=== PATIENT | male | born 1955 | race Caucasian/White ===

== ENCOUNTER 2020-06-29 09:23 | Outpatient (REF) | payer SELFPAY ==
[2020-06-29 10:44] LABS: Cholesterol 191 mg/dL
== END 2020-06-29 09:24 | disposition home or self-care (01) ==
LOC: HO.LNC 09:23
PROVIDERS: Visit Provider Pathology Anatomic Pathology & Clinical Pathology
DX: E78.5 Hyperlipidemia, unspecified (principal)
CPT/HCPCS: 82465

== ENCOUNTER 2022-07-09 15:59 | Emergency (ER) | payer MEDICARE, SELFPAY ==
[2022-07-09 16:05] VITALS: BP 133/91; PULSE 78; RESP 18; TEMP 36.6; O2SAT 97; BMI 25.4
--- NOTE | 2022-07-09 16:05 | ED_ITS ---
HPI - Eye Problem General Chief complaint: Eye Problems <SACHA Rodriguez - Last Filed: 07/09/22 16:11> Stated complaint: left eye problem <SACHA Rodriguez - Last Filed: 07/09/22 16:11> Time Seen by Provider: 07/09/22 16:50 <SACHA Rodriguez - Last Filed: 07/09/22 16:11> Source: patient <Doris Armenta NP - Last Filed: 07/09/22 23:30> Mode of arrival: ambulatory <Doris Armenta NP - Last Filed: 07/09/22 23:30> Limitations: no limitations <Doris Armenta NP - Last Filed: 07/09/22 23:30> History of Present Illness HPI Narrative: 67-year-old male presents with flashing lights to his right eye when he moves his head or turns his eyes. He states that he has had an upper respiratory infection and has been coughing over the past 10 days. He does not report any curtain like darkness, loss of vision, changes in vision, or significant eye pain on movement. Does not report any trauma, or risk of foreign body. <Doris Armenta NP - Last Filed: 07/09/22 23:30> chief complaint: other (Photopsia) <Doris Armenta NP - Last Filed: 07/09/22 23:30> Onset (ago): day(s) (2) <Doris Armenta NP - Last Filed: 07/09/22 23:30> Onset description: gradual <Doris Armenta NP - Last Filed: 07/09/22 23:30> Duration: intermittent <Doris Armenta NP - Last Filed: 07/09/22 23:30> Location: right eye <Doris Armenta NP - Last Filed: 07/09/22 23:30> Place: home <Doris Armenta NP - Last Filed: 07/09/22 23:30> Mechanism: none <Doris Armenta NP - Last Filed: 07/09/22 23:30> Severity: mild <Doris Armenta NP - Last Filed: 07/09/22 23:30> Context: recent URI <Doris Armenta NP - Last Filed: 07/09/22 23:30> Associated symptoms: none <Doris Armenta NP - Last Filed: 07/09/22 23:30> Treatments Prior to Arrival: none <Doris Armenta NP - Last Filed: 07/09/22 23:30> Related Data Allergies/adverse reactions: Allergies Allergy/AdvReac Type Severity Reaction Status Date / Time No Known Allergies Allergy Unverified 03/17/20 14:41 [No Known Allergies*] <SACHA Rodriguez - Last Filed: 07/09/22 16:11> Review of Systems Review of Systems: Constitutional: No Fever, No Chills ENT/Mouth: No Ear Pain, No Hoarseness, No sore throat Eyes: Positive eye flashes, no Eye Pain, No Swelling, No Redness, No Foreign Body Cardiovascular: No Chest Pain, No SOB Respiratory: No Cough, No Dyspnea Gastrointestinal: No Nausea, No Vomiting, No Diarrhea, No abdominal Pain Musculoskeletal: No joint pain, No Myalgias, No Joint Swelling Skin: No Skin lacerations, No rash Neuro: No Weakness, No Numbness, No Paresthesias, No Dizziness, No Headache <Doris Armenta NP - Last Filed: 07/09/22 23:30> Yes all other systems are reviewed and are negative <Doris Armenta NP - Last Filed: 07/09/22 23:30> PMFSH Past Medical History Attestation statement: The following information was validated with the patient. <Doris Armenta NP - Last Filed: 07/09/22 23:30> Source: old records reviewed <Doris Armenta NP - Last Filed: 07/09/22 23:30> Social History Social History: Social History Advance Directives: No Advance Directives Information Provided: Yes <SACHA Rodriguez - Last Filed: 07/09/22 16:11> Physical Exam 2 Vital Signs: Vital Signs: Last Vital Signs Temp 97.8 F 07/09/22 16:05 Pulse 78 07/09/22 16:05 Resp 18 07/09/22 16:05 BP 133/91 H 07/09/22 16:05 Pulse Ox 97 07/09/22 16:05 O2 Del Method 07/09/22 16:05 BMI result Body Mass Index 25.4 <SACHA Rodriguez - Last Filed: 07/09/22 16:11> Vital Signs: Last Vital Signs Temp 97.8 F 07/09/22 16:05 Pulse 78 07/09/22 16:05 Resp 18 07/09/22 16:05 BP 133/91 H 07/09/22 16:05 Pulse Ox 97 07/09/22 16:05 O2 Del Method 07/09/22 16:05 BMI result Body Mass Index 25.4 <Doris Armenta NP - Last Filed: 07/09/22 23:30> Appearance: Alert. Oriented X3. No acute distress. Eyes: Pupils equal, round and reactive to light. Sclera nonicteric. No hyphema. No globe rupture. No nystagmus. ENT: Pharynx normal. Neck: Normal inspection. Neck supple. CVS: Normal heart rate and rhythm. Pulses normal. Respiratory: No respiratory distress. Breath sounds normal. Abdomen: Soft and nontender. Skin: Skin warm and dry. Normal skin color. Normal skin turgor. Extremities: No lower extremity edema. Gait well-balanced well coordinated. Neuro: No motor deficit. No sensory deficit. Cranial nerves 2-12 intact. <Doris Armenta NP - Last Filed: 07/09/22 23:30> Course Course Course Narrative: RME--67-year-old male Pmhx prostate CA, hemochromatosis, presenting to the ED complaining of right eye visual changes described as seeing a white flash in the corner of his eye when he turns his head to the right since yesterday. Wears cheater glass, No contacts. Denies EVANGELISTA or taking AC Visual acuity ordered. Patient will be sent back to the ED for full eval by main provider <SACHA Rodriguez - Last Filed: 07/09/22 16:11> RME--67-year-old male Pmhx prostate CA, hemochromatosis, presenting to the ED complaining of right eye visual changes described as seeing a white flash in the corner of his eye when he turns his head to the right since yesterday. Wears cheater glass, No contacts. Denies EVANGELISTA or taking AC Visual acuity ordered. Patient will be sent back to the ED for full eval by main provider 17:[address] Manzano, plan is for patient to follow-up in the office tomorrow for dilation with proper funduscopic exam. There is low risk for optic neuritis, no risk for amaurosis fugax, or retinal detachment. Patient has not had any visual losses, or any trauma. NIH stroke scale 0. Visual acuity 2020 OU. No pain on extraocular movements. No nystagmus. Patient verbalized understanding of and agrees to plan of care discharge home. Verbalized understanding of signs and symptoms indicating need for emergent intervention. <Doris Armenta NP - Last Filed: 07/09/22 23:30> Consultations Consultation #1: Jose Juan <Doris Armenta NP - Last Filed: 07/09/22 23:30> Time: 16:59 <Drois Armenta NP - Last Filed: 07/09/22 23:30> Medical Decision Making Differential Diagnosis Differential Diagnoses: The differential diagnosis associated with the presentation includes <Doris Armenta NP - Last Filed: 07/09/22 23:30> Amaurosis fugax, acute angle glaucoma, hyphema, vitreous humor rupture, retinal detachment <Doris Armenta NP - Last Filed: 07/09/22 23:30> Consult Healthcare Provider Management of the patient was discussed with: Marine Steam Fitter Helper <Doris Armenta NP - Last Filed: 07/09/22 23:30> Jose Juan <Doris Armenta NP - Last Filed: 07/09/22 23:30> External Record Review External record reviewed: Outpatient record <Doris Armenta NP - Last Filed: 07/09/22 23:30> Discharge Plan Discharge Clinical Impression: Photopsia of right eye <SACHA Rodriguez - Last Filed: 07/09/22 16:11> Patient Disposition: Home, Self-Care <SACHA Rodriguez - Last Filed: 07/09/22 16:11> Instructions: Visual Floaters (ED) <SACHA Rodriguez - Last Filed: 07/09/22 16:11> Additional Instructions: You were evaluated for visual disturbance to the right eye. Please follow-up with Dr. Manzano tomorrow. Please call the office and request an appointment. He is expecting your call. Thank you for choosing this emergency department for evaluation. Please follow-up with primary care physician as needed. Return to the emergency department for any new, concerning, or worsening symptoms. <SACHA Rodriguez - Last Filed: 07/09/22 16:11> Referrals: Jerry Manzano [Physician] - 1 day (Photopsia right eye) <SACHA Rodriguez - Last Filed: 07/09/22 16:11> Interventions: ED Discharge Assessment Last Done: 07/09/22 17:20 <SACHA Rodriguez - Last Filed: 07/09/22 16:11> Discharge Date/Time: 07/09/22 17:25 <SACHA Rodriguez - Last Filed: 07/09/22 16:11>
== END 2022-07-09 17:25 | disposition home or self-care (01) ==
PROVIDERS: Emergency Provider Emergency Medicine; PCP Internal Medicine
DX: H53.19 Other subjective visual disturbances (principal)
CPT/HCPCS: 99282

== ENCOUNTER 2025-01-15 08:50 | Outpatient (REF) | payer MEDICARE, SELFPAY ==
--- OUTSIDE RECORDS SUMMARY | 2025-01-15 08:54 | XMS_ITS | Clinical Summary ---
Author Organization [facility] Address [address] [place] [address] Care Team Providers Care Disaster Director Name Role Phone Nahid Doshi MD Primary Care Provider [phone] Allergies No known active allergies Medications Medication Sig Dispensed Refills Start Date End Date Status ALPRAZolam (XANAX) 1 MG tablet Take 1 tablet (1 mg total) by mouth every night at bedtime as needed for sleep. 0 Active Active Problems Problem Noted Date Diagnosed Date Hereditary hemochromatosis 09/25/2022 Neutropenia 09/25/2022 Family History Medical History Relation Name Comments Cancer Father Relation Name Status Comments Father Social History Tobacco Use Types Packs/Day Years Used Date Smoking Tobacco: Never Smokeless Tobacco: Never Tobacco Cessation:Counseling Given: Not Answered Alcohol Use Standard Drinks/Week Comments Yes 2 (1 standard drink = 0.6 oz pur e alcohol) Sex and Gender Information Value Date Recorded Sex Assigned at Not on file Gender Identity Not on file Sexual Orientation Not on file Job Start Date Occupation Industry Not on file Not on file Not on file Last Filed Vital Signs Vital Sign Reading Time Taken Comments Blood Pressure 128/72 04/08/2023 9:00 AM EDT Pulse 61 04/08/2023 9:00 AM EDT Temperature 36.6 C (97.9 F) 04/08/2023 9:00 AM EDT Respiratory Rate - - Oxygen Saturation 100% 04/08/2023 9:00 AM EDT Inhaled Oxygen Concentration - - Weight 85.9 kg (189 lb 6.4 oz) 04/08/2023 9:00 A M EDT Height 180.3 cm (5' 11 ) 04/08/2023 9:00 AM EDT Body Mass Index 26.42 04/08/2023 9:00 AM EDT Plan of Treatment Health Maintenance Due Date Last Done Comments Hepatitis C Screening 1955 COVID-19 Vaccine (#1) 1957 Depression Screening 1969 Preventative Health Evaluation 1975 Colon Cancer Screening (Colonoscopy) 2002 Shingrix-Zoster Vaccine (1 of 2) 2007 DTap / Tdap / Td (2 - Td or Tdap) 04/04/2019 009 Fall Risk Assessment 2022 Pneumococcal Vaccine (1 of 1 - PCV) 2022 Influenza Vaccine (#1) 2025 RSV Adult > 60+ Yrs or Pregn ant (1 - 1-dose 75+ series) 2032 Hepatitis B Vaccines Aged Out No long er eligible based on patient's age to complete this topic RSV Ped < 20 months Aged Out No longe r eligible based on patient's age to complete this topic Care Teams Disaster Director Relationship Specialty Start Date End Date Nahid Doshi MD PCP - General Internal Medicine 07/13/22
--- OUTSIDE RECORDS SUMMARY | 2025-01-15 08:54 | XMS_ITS | Encounter Summary ---
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) Social History Tobacco Use Types Packs/Day Years Used Date Smoking Tobacco: Never Assessed Sex and Gender Information Value Date Recorded Sex Assigned at Not on file Legal Sex Male 9:53 PM EDT Gender Identity Not on file Sexual Orientation Not on file documented as of this encounter Plan of Treatment Not on file documented as of this encounter Results * (ABNORMAL) PSA (screening) (12/09/2017 8:57 AM EDT) PSA 5.10(H) 0 - 4.00 ng/mL [facility] Blood 12/09/2017 8:57 AM EDT 12/09/2017 9:00 AM EDT us Lei Hart MD LAB BLOOD ORDERABLES Final Resu lt [facility] [address] [place] [address] documented in this encounter Visit Diagnoses Diagnosis Benign localized hyperplasia of prostate with urinary retention- Primary Benign localized hyperplasia of prostate with urinary obstruction and other lower urinary tract symptoms (LUTS) documented in this encounter Care Teams Warping Mill Operator Relationship Specialty Start Date End Date Nahid Doshi MD [address] [place] [address] PCP - General Internal Medicine 12/09/17 documented as of this encounter Additional Source Comments The information contained in this document represents components of the legal health record. It is not the complete legal health record.[facility]
--- OUTSIDE RECORDS SUMMARY | 2025-01-15 08:54 | XMS_ITS | Clinical Summary ---
Author Organization [facility] [address] [place] [address] [place] [phone] Phone Care Team Providers Care Government Professor Name Role Phone Nahid Doshi MD Primary Care Provider [phone] Allergies No known active allergies Medications cholecalciferol, vitamin D3, 75 mcg (3,000 unit) tablet Take 1 tablet by mouth 1 (one) time each day. 3 Active B complex tablet Take by mouth 1 (one) time each day. Active omega-3 acid ethyl esters (LOVAZA) 1 gram capsule Take by mouth. Active TURMERIC ORAL Take 750 mg by mouth. 3 tablets daily Active glucos sul 2KCl/msm/chond/C /Mn (GLUCOSAMINE CHONDROITIN ORAL) 1500MG QD Active ALPRAZolam (XANAX) 1 mg tablet Take 1 tablet (1 mg total) by mouth 1 (one) time each day if needed for anxiety. Max Daily Amount: 1 mg 28 tablet 5 Active ALPRAZolam (XANAX) 1 mg tablet Take 1 tablet (1 mg total) by mouth 1 (one) time each day if needed for anxiety. Max Daily Amount: 1 mg 28 tablet 5 12/29/19 25 Discontinu ed(Reorder ) Active Problems Problem Noted Date Diagnosed Date Osteochondral lesion 08/23/2022 COVID-19 07/06/2021 Anxiety 07/07/2019 Prostate CA (CMS/HCC V24, CMS/HCC V28) 0 Depression 06/19/2018 Osteoarthritis of cervical spine 09/02/2017 Joint pain 12/21/2016 Actinic keratosis 05/15/2012 Overview (05/07/2024): Actinic keratosis 05/12 right cheek Hereditary hemochromatosis (CMS/HCC V24) 012 Agoraphobia with panic disorder 06/29/2009 Leukopenia 06/03/2007 Encounters Date Type Department Care Team Description 12/18/2024 Telephone Adult Medicine [address] [phone] Nahid Doshi MD Results 12/16/2024 3:30 PM EDT Office Visit [facility] Hematology Oncology [address] [place] [phone] Chuck Swanson MD Hereditary hemochromatosis (CMS/HCC V24) (Primary Dx); Macrocytosis 10/27/2024 8:00 AM EDT Office Visit Adult Medicine [address] [place] [phone] Rock Aleman PA Lateral epicondylitis of left elbow (Primary Dx); Hereditary hemochromatosis (CMS/HCC V24); History of prostate cancer; Encounter for follow-up surveillance of prostate cancer; Encounter for screening for malignant neoplasm of prostate from Last 3 Months Immunizations Name Administration Dates Next Due Tdap Tetanus diptheria acell ular pertussis (Boostrix; Adacel) 7yo and older 12/05/2023,04/04/2009 Surgical History Surgery Date Site/Laterality Comments COLONOSCOPY 07/01/1999 PROCEDURE: VA COLONOSCOPY FLX DX W/COLLJ SPEC WHEN PFRMD; COMMENT: negative COLONOSCOPY 07/01/2012 PROCEDURE: VA COLONOSCOPY FLX DX W/COLLJ SPEC WHEN PFRMD; COMMENT: normal COLONOSCOPY PROCEDURE: HISTORICAL COLONOSCOPY Medical History Medical History Date Comments Family history of prostate cancer 10/22/2013 DX:Family history of prostate cancer Rectal bleeding DX:Rectal bleedi ng Abdominal discomfort DX:Abdomina l discomfort Neoplasm of uncertain behavi or of prostate DX:Neoplasm of uncertain beh avior of prostate Hemochromatosis DX:Hemochromatos is Family History Medical History Relation Name Comments Arthritis Father Cataracts Father Prostate cancer Father at age 75 Other: from some type of ca age 63 Maternal Grand mother Blindness Other Arthritis Sister Relation Name Status Comments Father Maternal Grandmother Other Sister Social History Tobacco Use Types Packs/Day Years Used Date Smoking Tobacco: Never Smokeless Tobacco: Never Alcohol Use Standard Drinks/Week Comments Yes 0 (1 standard drink = 0.6 oz pur e alcohol) Housing Instability Answer Date Recorde d Are you worried that in the next 2 months you may not have stable housing? No 10/11/2024 Food Access & Nutrition Answer Date Rec orded Do you have access to a vari ety of food including fruits and vegetables? Yes 10/11/2024 Access to Healthcare Answer Date Record ed Within the last 3 months, ho w many times did you visit the emergency department for your medical care? 0 10/11/2024 Health Literacy Answer Date Recorded How often do you need to hav e someone help you when you read instructions, pamphlets, or other written material from your doctor or pharmacy? Never 10/11/2024 Caregiver: How often do you need to have someone help you when you read instructions, pamphlets, or other written material from your doctor or pharmacy? Not on file 10/11/2024 Financial Risk Answer Date Recorded How hard is it for you to pa y for the very basics like food, housing, medical care, and air conditioning / heating? Not very hard 10/11/2024 Transportation Answer Date Recorded Has the lack of transportati on kept you from meetings, work, or from getting things needed for daily living? No Has the lack of transportati on kept you from medical appointments or from getting medications? No 10/11/2024 Social Isolation Answer Date Recorded How often do you feel lonely or isolated from th ose around you? Rarely 10/11/2024 Food Risk Answer Date Recorded Within the past 12 months we worried whether our food would run out before we got money to buy more. Never true 10/11/2024 Within the past 12 months th e food we bought just didn't last and we didn't have money to get more. Never true 10/11/2024 Dependent Care Answer Date Recorded Do you need help finding or paying for care for your loved ones. For example, early childhood coordinator or elderly care for an older adult? No 10/11/2024 Education Answer Date Recorded Do you think completing more education or training, like finishing a GED, going to college, or learning a trade, would be helpful for you? No 10/11/2024 Employment and Income Answer Date Recor ded During the last four weeks, have you been actively looking for work? No 10/11/2024 Living Situation Answer Date Recorded What is your living situation? 0 10/11/2024 Sex and Gender Information Value Date Recorded Sex Assigned at Not on file Legal Sex Male 5:10 PM EST Gender Identity Not on file Sexual Orientation Not on file Obstetrics History Last Filed Vital Signs Vital Sign Reading Time Taken Comments Blood Pressure 109/62 12/16/2024 3:28 PM EDT Pulse 66 12/16/2024 3:28 PM EDT Temperature 36.7 C (98 F) 12/16/2024 3:28 PM EDT Respiratory Rate 14 10/27/2024 8:04 AM EDT Oxygen Saturation 99% 12/16/2024 3:28 PM EDT Inhaled Oxygen Concentration - - Weight 84.4 kg (186 lb) 12/16/2024 3:28 PM EDT Height 180.3 cm (5' 11 ) 10/27/2024 8:04 AM EDT Body Mass Index 25.94 10/27/2024 8:04 AM EDT Plan of Treatment Upcoming Encounters Date Type Department Care Team (Late st Contact Info) Description 02/10/2025 9:00 AM EDT Office Visit [facility] Hematology Oncology [address] [place] [phone] Chuck Swanson MD [address] [place] [phone] 03/12/2025 8:30 AM EDT Office Visit Adult Medicine [address] [phone] Nahid Doshi MD [address] [place] [phone] Health Maintenance Due Date Last Done Comments Pneumococcal Vaccine: 50+ Years (1 of 1 - PCV) 2007 COVID-19 Vaccine (3 - Pfizer risk series) 11/23/2020 10/26/2020, 10/05/2020 Falls Risk Assessment 06/09/2022 Medicare Annual Wellness Visit 06/09/2022 Cholesterol Screening (Lipid Panel) 07/07/2024 07/07/2019 Influenza Vaccine (#1) 2025 Social Influencers of Health Screening 10/11/2025 10/11/2024 RSV Immunization Adult Patients (1 - 1-dose 75+ series) 2032 Colorectal Cancer Screening: Colonoscopy 01/10/2033 01/10/2023 DTaP,Tdap,and Td Vaccines (3 - Td or Tdap) 12/04/2033 12/05/2023, 04/04/2009 Hepatitis C Screening Completed 03/09/2013 Zoster Vaccines Completed 05/12/2024, 02/10/2024 Depression Screening Completed 10/11/2024 HIB Vaccines Aged Out No longer eligi ble based on patient's age to complete this topic HPV Vaccines Aged Out No longer eligi ble based on patient's age to complete this topic Hepatitis A Vaccines Aged Out No long er eligible based on patient's age to complete this topic Hepatitis B Vaccines Aged Out No long er eligible based on patient's age to complete this topic IPV Vaccines Aged Out No longer eligi ble based on patient's age to complete this topic MMR Vaccines Aged Out No longer eligi ble based on patient's age to complete this topic Meningococcal ACWY Vaccine Aged Out N o longer eligible based on patient's age to complete this topic Meningococcal B Vaccine Aged Out No l onger eligible based on patient's age to complete this topic RSV Immunization Patients Under 20 months Aged Out No longer eligible b ased on patient's age to complete this topic Varicella Vaccines Aged Out No longer eligible based on patient's age to complete this topic Procedures Procedure Name Priority Date/Time Associated Diagnosis Comments VITAMIN B12 Routine 11/02/2024 1:26 PM EDT Macrocytosis FOLATE Routine 11/02/2024 1:26 PM EDT Macrocytosis COMPLETE BLOOD COUNT Routine 11/02/2024 1:26 PM EDT History of prostate cancer Hereditary hemochromatosis (CMS/HCC V24) COMPREHENSIVE METABOLIC PANEL Routine 11/02/2024 1:26 PM EDT History of prostate cancer Hereditary hemochromatosis (CMS/HCC V24) THYROID STIMULATING HORMONE Routine 11/02/2024 1:26 PM EDT History of prostate cancer Hereditary hemochromatosis (CMS/HCC V24) Encounter for follow-up surveillance of prostate cancer FERRITIN Routine 11/02/2024 1:26 PM EDT History of prostate cancer Hereditary hemochromatosis (CMS/HCC V24) IRON AND TIBC Routine 11/02/2024 1:26 PM EDT History of prostate cancer Hereditary hemochromatosis (CMS/HCC V24) PROSTATE SPECIFIC ANTIGEN SCREEN Routine 11/02/2024 1:26 PM EDT History of prostate cancer Hereditary hemochromatosis (CMS/HCC V24) Encounter for screening for malignant neoplasm of prostate COLONOSCOPY Routine 01/10/2023 LIPID PANEL Routine 07/07/2019 HEPATITIS C SCREENING Routine 03/09/2013 from Last 3 Months or Most Recently Relevant to Health Maintenance Results * Prostate specific antigen screen (11/02/2024 1:26 PM EDT) PSA 0.16 0.00 - 4.00 ng/mL LAB CHEMISTRY METHOD 11/02/2024 6:41 PM EDT [facility] Blood Venous blood specimen / Unknown Venipuncture / Unknown 11/02/2024 1:26 PM EDT 11/02/2024 1:26 PM EDT Narrative [facility] - 11/02/2024 6:41 PM EDT The Siemens Advia Centaur Chemiluminescent Immunoassay is used. Results obtained with different assay methods or kits cannot be used interchangeably. Results cannot be interpreted as absolute evidence of the presence or absence of malignant disease. us Rock GONCALVES LAB BLOOD ORDERABLES Fin al Result [facility] [address] [place] [address], [place] [phone] * (ABNORMAL) Iron and TIBC (11/02/2024 1:26 PM EDT) [facility] Iron 188(H) 50 - 160 mcg/dL LAB CHEMISTRY METHOD 11/02/2024 4:57 PM EDT [facility] TIBC 219(L) 250 - 450 mcg/dL LAB CHEMISTRY METHOD 11/02/2024 4:57 PM EDT [facility] Iron Saturation 86(H) 20 - 50 % LAB CHEMISTRY METHOD 11/02/2024 4:57 PM EDT [facility] Blood Venous blood specimen / Unknown Venipuncture / Unknown 11/02/2024 1:26 PM EDT 11/02/2024 1:26 PM EDT Rock GONCALVES LAB BLOOD ORDERABLES Fin al Result [facility] [address] [place] [address], [place] [phone] * (ABNORMAL) Complete blood count (11/02/2024 1:26 PM EDT) [facility] WBC 4.4(L) 4.8 - 10.8 K/mcL LAB HEMETOLOGY METHOD 11/02/2024 4:55 PM EDT [facility] RBC 3.90(L) 4.50 - 5.50 M/mcL LAB HEMETOLOGY METHOD 11/02/2024 4:55 PM EDT [facility] Hemoglobin 13.4(L) 13.5 - 17.5 g/dL LAB HEMETOLOGY METHOD 11/02/2024 4:55 PM EDT [facility] Hematocrit 40.1(L) 42.0 - 54.0 % LAB HEMETOLOGY METHOD 11/02/2024 4:55 PM EDT [facility] MCV 102.6(H) 79.0 - 98.0 FL LAB HEMETOLOGY METHOD 11/02/2024 4:55 PM EDT [facility] MCH 34.3(H) 27.0 - 32.0 pcg LAB HEMETOLOGY METHOD 11/02/2024 4:55 PM EDT [facility] MCHC 33.4 32.0 - 37.0 g/dL LAB HEMETOLOGY METHOD 11/02/2024 4:55 PM EDT [facility] RDW 13.9 11.0 - 15.0 % LAB HEMETOLOGY METHOD 11/02/2024 4:55 PM EDT [facility] Platelets 185 130 - 400 K/mcL LAB HEMETOLOGY METHOD 11/02/2024 4:55 PM EDT [facility] MPV 10.2 7.0 - 11.0 FL LAB HEMETOLOGY METHOD 11/02/2024 4:55 PM EDT [facility] NRBC 0.0 <1.0 % LAB HEMETOLOGY METHOD 11/02/2024 4:55 PM EDT [facility] NRBC Absolute 0.00 <0.10 K/mcL LAB HEMETOLOGY METHOD 11/02/2024 4:55 PM EDT [facility] Blood Venous blood specimen / Unknown Venipuncture / Unknown 11/02/2024 1:26 PM EDT 11/02/2024 1:26 PM EDT us Rock [facility]ON[facility] LAB BLOOD ORDERABLES Fin al Result [facility] [address] [place] [address], * Thyroid stimulating hormone (11/02/2024 1:26 PM EDT) TSH 2.33 0.40 - 4.00 mcIU/mL LAB CHEMISTRY METHOD 11/02/2024 5:37 PM EDT [facility] Blood Venous blood specimen / Unknown Venipuncture / Unknown 11/02/2024 1:26 PM EDT 11/02/2024 1:26 PM EDT Rock GONCALVES LAB BLOOD ORDERABLES Fin al Result Performing Organization Address [facility]/ZIP Co de Phone Number [facility] [address] [place] [address], [place] [phone] * (ABNORMAL) Folate (11/02/2024 1:26 PM EDT) Folate >20.0(H) 2.8 - 17.0 ng/ml LAB CHEMISTRY METHOD 11/03/2024 2:29 PM EDT [facility] Blood Venous blood specimen / Unknown Venipuncture / Unknown 11/02/2024 1:26 PM EDT 11/02/2024 1:26 PM EDT Rock GONCALVES LAB BLOOD ORDERABLES Fin al Result Performing Organization Address [facility] de Phone Number [facility] [address] [place] [address], [place] [phone] * Ferritin (11/02/2024 1:26 PM EDT) Ferritin 81 26 - 388 ng/mL LAB CHEMISTRY METHOD 11/02/2024 4:57 PM EDT [facility] Blood Venous blood specimen / Unknown Venipuncture / Unknown 11/02/2024 1:26 PM EDT 11/02/2024 1:26 PM EDT Rock GONCALVES LAB BLOOD ORDERABLES Fin al Result Performing Organization Address [facility]/ZIP Co de Phone Number [facility] [address] [place] [address], [place] [phone] * (ABNORMAL) Vitamin B12 (11/02/2024 1:26 PM EDT) Pathologist [facility] Vitamin B-12 945(H) 250 - 900 pcg/mL LAB CHEMISTRY METHOD 11/03/2024 2:29 PM EDT [facility] Blood Venous blood specimen / Unknown Venipuncture / Unknown 11/02/2024 1:26 PM EDT 11/02/2024 1:26 PM EDT us Rock GONCALVES LAB BLOOD ORDERABLES Fin al Result [facility] [address] [place] [address], [place] [phone] * (ABNORMAL) Comprehensive metabolic panel (11/02/2024 1:26 PM EDT) [facility] Sodium 144 133 - 145 mmol/L LAB CHEMISTRY METHOD 11/02/2024 4:57 PM [facility] Potassium 3.9 3.5 - 5.5 mmol/L LAB CHEMISTRY METHOD 11/02/2024 4:57 PM [facility] Chloride 111(H) 96 - 110 mmol/L LAB CHEMISTRY METHOD 11/02/2024 4:57 PM [facility] CO2 27 21 - 32 mmol/L LAB CHEMISTRY METHOD 11/02/2024 4:57 PM [facility] Anion Gap 6 3 - 11 LAB CHEMISTRY METHOD 11/02/2024 4:57 PM [facility] Glucose 104(H) 70 - 100 mg/dL LAB CHEMISTRY METHOD 11/02/2024 4:57 PM [facility] BUN 14 5 - 25 mg/dL LAB CHEMISTRY METHOD 11/02/2024 4:57 PM [facility] Creatinine 0.87 0.70 - 1.30 mg/dL LAB CHEMISTRY METHOD 11/02/2024 4:[facility] eGFR 95 >=60 mL/min/1. 73m2 LAB CHEMISTRY METHOD 11/02/2024 4:57 PM [facility] Comment:Calculation based on the Chronic Kidney Disease Epidemiology Collaboration (CKD-EPI) equation refit without adjustment for race. BUN/Creatinine Ratio 16.1 LAB CHEMISTRY METHOD 11/02/2024 4:57 PM [facility] Calcium 8.6 8.5 - 10.5 mg/dL LAB CHEMISTRY METHOD 11/02/2024 4:57 PM [facility] AST (SGOT) 15 10 - 42 unit/L LAB CHEMISTRY METHOD 11/02/2024 4:57 PM [facility] ALT (SGPT) 21 10 - 60 unit/L LAB CHEMISTRY METHOD 11/02/2024 4:57 PM [facility] Alkaline Phosphatase 62 42 - 121 unit/L LAB CHEMISTRY METHOD 11/02/2024 4:57 PM [facility] Total Protein 6.2 6.0 - 8.0 g/dL LAB CHEMISTRY METHOD 11/02/2024 4:57 PM [facility] Albumin 3.2 3.2 - 5.0 g/dL LAB CHEMISTRY METHOD 11/02/2024 4:57 PM [facility] Total Bilirubin 0.4 0.0 - 1.4 mg/dL LAB CHEMISTRY METHOD 11/02/2024 4:57 PM [facility] Blood Venous blood specimen / Unknown Venipuncture / Unknown 11/02/2024 1:26 PM EDT 11/02/2024 1:26 PM EDT us Rock [facility]ON[facility] LAB BLOOD ORDERABLES Fin al Result [facility] [address] [place] [address], * Hm Colonoscopy (01/10/2023) [facility] Colonoscopy abstracted, no interpretation Anatomical Region Laterality Modality Other Historical Provider HEALTH MAINTENANCE Final Result * (ABNORMAL) Lipid panel (07/07/2019) [facility] LDL/HDL Ratio 3 0 - 4 Triglycerides 72 0 - 150 mg/dL Cholesterol 214(A) 0 - 200 mg/dL HDL 71 >=40 mg/dL LDL Cholesterol 129(A) 0 - 100 mg/dL Blood Venous blood specimen / Unknown [facility] Provider LAB BLOOD ORDERABLES Missy l Result * Hepatitis C Screening (03/09/2013) [facility] Hepatitis C Screening abstracted [facility] Provider HEALTH MAINTENANCE Final Result from Last 3 Months or Most Recently Relevant to Health Maintenance Insurance [employer] MEDICARE Care Teams Government Professor Relationship Specialty Start Date End Date Nahid Doshi MD [address] [place] [address] PCP - General 04/30/1999
== END 2025-01-15 08:51 | disposition home or self-care (01) ==
LOC: HO.BBR 08:50
PROVIDERS: PCP Internal Medicine; Visit Provider Internal Medicine Hematology & Oncology
DX: Z13.89 Encounter for screening for other disorder (principal)

== ENCOUNTER 2025-02-12 07:54 | Outpatient (REF) | payer MEDICARE, SELFPAY ==
--- OUTSIDE RECORDS SUMMARY | 2025-02-12 07:57 | XMS_ITS | Clinical Summary ---
Author Organization [facility] Address [address] [place] [address] Care Team Providers Care Elementary [employer] Counselor Name Role Phone Nahid Doshi MD Primary Care Provider [phone] Allergies No known active allergies Medications Medication [...] age to complete this topic Care Teams Elementary [employer] Counselor Relationship Specialty Start Date End Date Nahid Doshi MD PCP - General Internal Medicine 07/13/22
--- OUTSIDE RECORDS SUMMARY | 2025-02-12 07:57 | XMS_ITS | Encounter Summary ---
Author Organization [facility] Address [address] [facility] [facility] [address] [place] [address] Phone Care Team Providers Care Cord Splicer Name Role Phone Nahid Doshi MD Primary Care Provider [phone] Encounter Details Date Type Department Care Team (Latest Contact Info) Description 12/09/2017 Transcribe Orders [facility] Laboratory [address] [address] Lei Hart MD [address] [place] [address], [address] [address] [email or web address] Benign localized hyperplasia of prostate with urinary [...] EDT) PSA 5.10(H) 0 - 4.00 ng/mL [facility] Blood 12/09/2017 8:57 AM EDT 12/09/2017 9:00 AM EDT us Lei Hart MD LAB BLOOD ORDERABLES Final Resu lt [facility] [address] [place] [address] documented in this encounter Visit Diagnoses Diagnosis Benign localized hyperplasia of prostate with urinary retention- Primary Benign localized hyperplasia of prostate with urinary obstruction and other lower urinary tract symptoms (LUTS) documented in this encounter Care Teams Cord Splicer Relationship Specialty Start Date End Date Nahid Doshi MD [address] [place] [address] PCP - General Internal Medicine 12/09/17 documented as of this encounter Additional Source Comments The information contained in this document represents components of the legal health record. It is not the complete legal health record.[facility]
--- OUTSIDE RECORDS SUMMARY | 2025-02-12 07:57 | XMS_ITS | Clinical Summary ---
Author Organization [facility] [address] [place] [address] [place] [phone] Phone Care Team Providers Care Customer Consultant Name Role Phone Nahid Doshi MD Primary Care Provider [phone] Allergies No known active allergies Medications cholecalciferol, [...] Daily Amount: 1 mg 28 tablet 5 01/28/20 25 Discontinu ed(Reorder ) Active Problems Problem [...] Care Team Description 12/18/2024 Telephone Adult Medicine [address] [phone] Nahid Doshi MD Results 12/16/2024 3:30 PM EDT Office Visit [facility] Hematology Oncology [address] [place] [address] Chuck Swanson MD Hereditary hemochromatosis ([facility]/HCC V24) (Primary Dx); Macrocytosis from Last 3 Months Immunizations Name Administration Dates Next Due Tdap Tetanus diptheria acell ular pertussis (Boostrix; Adacel) 7yo and older 12/05/2023,04/04/2009 Surgical History Surgery Date Site/Laterality Comments COLONOSCOPY 07/01/1999 PROCEDURE: IN COLONOSCOPY FLX DX W/COLLJ SPEC WHEN PFRMD; COMMENT: negative COLONOSCOPY 07/01/2012 PROCEDURE: IN COLONOSCOPY FLX DX W/COLLJ SPEC WHEN PFRMD; [...] your loved ones. For example, early childhood education worker or elderly care for an older adult? [...] Care Team (Late st Contact Info) Description 02/23/2025 3:45 PM EDT Office Visit [facility] Hematology Oncology [address] [place] [phone] Chuck Swanson MD [address] [place] [phone] 03/12/2025 8:30 AM EDT Office Visit Adult Medicine [facility] [address] [place] [phone] Nahid Doshi MD [address] [place] [address] Health Maintenance Due Date Last Done Comments [...] Vaccines Completed 05/12/2024, 02/10/2024 Depression Screening Completed 10/11/2024, 12/05/2023 HIB Vaccines Aged Out No longer eligi [...] Procedure Name Priority Date/Time Associated Diagnosis Comments DEPRESSION SCREENING Routine 12/05/2023 COLONOSCOPY Routine 01/10/2023 LIPID PANEL Routine 07/07/2019 HEPATITIS C SCREENING Routine 03/09/2013 from Last 3 Months or Most Recently Relevant to Health Maintenance Results * Depression Screening (12/05/2023) Depression Screening abstracted us Historical Provider HEALTH MAINTENANCE Final Result * Colonoscopy (01/10/2023) Pathologist [facility] Colonoscopy abstracted, no interpretation Anatomical Region Laterality Modality Other us Historical Provider HEALTH MAINTENANCE Final Result * (ABNORMAL) Lipid panel (07/07/2019) Pathologist [facility] LDL/HDL Ratio 3 0 - 4 Triglycerides 72 0 - 150 mg/dL Cholesterol 214(A) 0 - 200 mg/dL HDL 71 >=40 mg/dL LDL Cholesterol 129(A) 0 - 100 mg/dL Blood Venous blood specimen / Unknown Historical Provider LAB BLOOD ORDERABLES Missy l Result * Hepatitis C Screening (03/09/2013) Hepatitis C Screening abstracted Historical Provider HEALTH MAINTENANCE Final Result from Last 3 Months or Most Recently Relevant to Health Maintenance Insurance [employer] MED[employer] Care Teams Customer Consultant Relationship Specialty Start Date End Date Nahid Doshi MD [address] [place] [address] PCP - General 04/30/1999
== END 2025-02-12 07:55 | disposition home or self-care (01) ==
LOC: HO.BBR 07:54
PROVIDERS: PCP Internal Medicine; Visit Provider Internal Medicine Hematology & Oncology
DX: Z13.89 Encounter for screening for other disorder (principal)

== ENCOUNTER 2025-03-19 08:44 | Outpatient (REF) | payer MEDICARE, SELFPAY ==
--- OUTSIDE RECORDS SUMMARY | 2025-03-19 09:20 | XMS_ITS | Clinical Summary ---
Author Organization [facility] [address] [place] [address] [place] [phone] Phone Care Team Providers Care Lead Sewage Plant Operator Name Role Phone Nahid Doshi MD Primary Care Provider [phone] Allergies No known active allergies Medications cholecalciferol, [...] Daily Amount: 1 mg 28 tablet 5 03/02/20 25 Discontinu ed(Reorder ) Active Problems Problem Noted Date Diagnosed Date Neutropenia ([facility] V24) 09/25/2022 Osteochondral lesion 08/23/2022 COVID-19 07/06/2021 Anxiety 07/07/2019 Prostate CA ([facility] V24, [facility] V28) 0 Depression 06/19/2018 Osteoarthritis of cervical spine 09/02/2017 Joint pain 12/21/2016 Actinic keratosis 05/15/2012 Overview (05/07/2024): Actinic keratosis 05/12 right cheek Hereditary hemochromatosis ([facility]/HCC V24) 012 Agoraphobia with panic disorder 06/29/2009 Leukopenia 06/03/2007 Encounters Date Type Department Care Team Description 03/16/2025 Telephone [facility] Hematology Oncology [address] [place] [phone] Chuck Swanson MD 03/12/2025 8:30 AM EDT Office Visit Adult Medicine [facility] [address] [place] [phone] Nahid Doshi MD Anxiety (Primary Dx); Hereditary hemochromatosis (CMS/HCC V24); Prostate CA ([facility]/HCC V24, CMS/HCC V28); Macrocytosis 02/12/2025 Telephone [facility] Hematology Oncology [address] [place] [phone] Chuck Swanson MD 12/18/2024 Telephone Adult Medicine [phone] [place] [phone] Nahid Doshi MD from Last 3 Months Immunizations Name Administration Dates Next Due Tdap Tetanus diptheria acell ular pertussis (Boostrix; Adacel) 7yo and older 12/05/2023,04/04/2009 Zoster recombinant (Shingrix) 19yo and older 05/2024,02/10/2024 Surgical History Surgery Date Site/Laterality Comments COLONOSCOPY 07/01/1999 PROCEDURE: FL COLONOSCOPY FLX DX W/COLLJ SPEC WHEN PFRMD; COMMENT: negative COLONOSCOPY 07/01/2012 PROCEDURE: FL COLONOSCOPY FLX DX W/COLLJ SPEC WHEN PFRMD; [...] Answered Alcohol Use Standard Drinks/Week Comments Yes 0 [...] care for your loved ones. For example, director maternal child or elderly care for an older adult? [...] Sign Reading Time Taken Comments Blood Pressure 123/57 03/12/2025 8:12 AM EDT Pulse 65 03/12/2025 8:12 AM EDT Temperature 36.8 C (98.2 F) 03/12/2025 8:12 AM EDT Respiratory Rate 16 03/12/2025 8:12 AM EDT Oxygen Saturation 99% 12/16/2024 3:28 PM EDT Inhaled Oxygen Concentration - - Weight 84.8 kg (187 lb) 03/12/2025 8:12 AM EDT Height 180.3 cm (5' 11 ) 03/12/2025 8:12 AM EDT Body Mass Index 26.08 03/12/2025 8:12 AM EDT Plan of Treatment Upcoming Encounters Date Type Department Care Team (Late st Contact Info) Description 03/19/2025 3:45 PM EDT Office Visit [facility] Hematology Oncology [address] [place] [address] Chuck Swanson MD [address] [place] [phone] Health Maintenance Due Date Last Done Comments [...] Procedure Name Priority Date/Time Associated Diagnosis Comments CBC WITH AUTO DIFFERENTIAL Routine 03/16/2025 7:46 AM EDT Hereditary hemochromatosis (CMS/HCC V24) CBC AND DIFFERENTIAL Routine 03/16/2025 7:46 AM EDT Hereditary hemochromatosis (CMS/HCC V24) COMPREHENSIVE METABOLIC PANEL Routine 03/16/2025 7:46 AM EDT Hereditary hemochromatosis (CMS/HCC V24) FERRITIN Routine 03/16/2025 7:46 AM EDT Hereditary hemochromatosis (CMS/HCC V24) IRON AND TIBC Routine 03/16/2025 7:46 AM EDT Hereditary hemochromatosis (CMS/HCC V24) DEPRESSION SCREENING Routine 12/05/2023 COLONOSCOPY Routine 01/10/2023 LIPID PANEL Routine 07/07/2019 HEPATITIS C SCREENING Routine 03/09/2013 from Last 3 Months or Most Recently Relevant to Health Maintenance Results * (ABNORMAL) CBC auto differential (03/16/2025 7:46 AM EDT) WBC 3.9(L) 4.8 - 10.8 K/mcL LAB HEMETOLOGY METHOD 03/16/2025 10:14 AM [facility] RBC 4.30(L) 4.50 - 5.50 M/mcL LAB HEMETOLOGY METHOD 03/16/2025 10:14 AM [facility] Hemoglobin 14.6 13.5 - 17.5 g/dL LAB HEMETOLOGY METHOD 03/16/2025 10:14 AM [facility] Hematocrit 43.1 42.0 - 54.0 % LAB HEMETOLOGY METHOD 03/16/2025 10:14 AM [facility] MCV 99.3(H) 79.0 - 98.0 FL LAB HEMETOLOGY METHOD 03/16/2025 10:14 AM [facility] MCH 33.6(H) 27.0 - 32.0 pcg LAB HEMETOLOGY METHOD 03/16/2025 10:14 AM [facility] MCHC 33.9 32.0 - 37.0 g/dL LAB HEMETOLOGY METHOD 03/16/2025 10:14 AM [facility] RDW 13.2 11.0 - 15.0 % LAB HEMETOLOGY METHOD 03/16/2025 10:14 AM [facility] Platelets 212 130 - 400 K/mcL LAB HEMETOLOGY METHOD 03/16/2025 10:14 AM [facility] MPV 9.9 7.0 - 11.0 FL LAB HEMETOLOGY METHOD 03/16/2025 10:14 AM [facility] NRBC 0.0 <1.0 % LAB HEMETOLOGY METHOD 03/16/2025 10:14 AM [facility] NRBC Absolute 0.00 <0.10 K/mcL LAB HEMETOLOGY METHOD 03/16/2025 10:14 AM [facility] Neutrophils Relative 41.2 % LAB HEMETOLOGY METHOD 03/16/2025 10:14 AM [facility] Lymphocytes Relative 36.9 % LAB HEMETOLOGY METHOD 03/16/2025 10:14 AM [facility] Monocytes Relative 11.2 % LAB HEMETOLOGY METHOD 03/16/2025 10:14 AM [facility] Eosinophils Relative 9.4 % LAB HEMETOLOGY METHOD 03/16/2025 10:14 AM [facility] Basophils Relative 1.3 % LAB HEMETOLOGY METHOD 03/16/2025 10:14 AM [facility] Immature Granulocytes Relative 0.0 % LAB HEMETOLOGY METHOD 03/16/2025 10:14 AM [facility] Neutrophils Absolute 1.62 1.50 - 7.00 K/mcL LAB HEMETOLOGY METHOD 03/16/2025 10:14 AM [facility] Lymphocytes Absolute 1.45 1.00 - 5.00 K/mcL LAB HEMETOLOGY METHOD 03/16/2025 10:14 AM [facility] Monocytes Absolute 0.44 0.20 - 1.00 K/mcL LAB HEMETOLOGY METHOD 03/16/2025 10:14 AM EDT [facility] Eosinophils Absolute 0.37 0.00 - 0.50 K/mcL LAB HEMETOLOGY METHOD 03/16/2025 10:14 AM EDT [facility] Basophils Absolute 0.05 0.00 - 0.20 K/mcL LAB HEMETOLOGY METHOD 03/16/2025 10:14 AM EDT [facility] Immature Granulocytes Absolute 0.00 0.00 - 0.03 K/mcL LAB HEMETOLOGY METHOD 03/16/2025 10:14 AM EDT [facility] Blood Venous blood specimen / Unknown Venipuncture / Unknown 03/16/2025 7:46 AM EDT 03/16/2025 7:46 AM EDT Chuck Swanson MD LAB BLOOD ORDERABLES Final Result Performing Organization Address [facility]/ZIP Co de Phone Number [facility] [address] [place] [address], * (ABNORMAL) Iron and TIBC (03/16/2025 7:46 AM EDT) Iron 224(H) 50 - 160 mcg/dL LAB CHEMISTRY METHOD 03/16/2025 10:40 AM EDT [facility] TIBC 236(L) 250 - 450 mcg/dL LAB CHEMISTRY METHOD 03/16/2025 10:40 AM EDT [facility] Iron Saturation 95(H) 20 - 50 % LAB CHEMISTRY METHOD 03/16/2025 10:40 AM EDT [facility] Blood Venous blood specimen / Unknown Venipuncture / Unknown 03/16/2025 7:46 AM EDT 03/16/2025 7:46 AM EDT Chuck Swanson MD LAB BLOOD ORDERABLES Final Result [facility] [address] [place] [address], [place] [phone] * Ferritin (03/16/2025 7:46 AM EDT) Pathologist [facility] Ferritin 65 26 - 388 ng/mL LAB CHEMISTRY METHOD 03/16/2025 10:40 AM [facility] Blood Venous blood specimen / Unknown Venipuncture / Unknown 03/16/2025 7:46 AM EDT 03/16/2025 7:46 AM EDT Chuck Swanson MD LAB BLOOD ORDERABLES Final Result [facility] [address] [place] [address], [place] [phone] * (ABNORMAL) Comprehensive metabolic panel (03/16/2025 7:46 AM EDT) [facility] Sodium 141 133 - 145 mmol/L LAB CHEMISTRY METHOD 03/16/2025 10:41 AM [facility] Potassium 4.1 3.5 - 5.5 mmol/L LAB CHEMISTRY METHOD 03/16/2025 10:41 AM [facility] Chloride 107 96 - 110 mmol/L LAB CHEMISTRY METHOD 03/16/2025 10:41 AM [facility] CO2 29 21 - 32 mmol/L LAB CHEMISTRY METHOD 03/16/2025 10:41 AM [facility] Anion Gap 5 3 - 11 LAB CHEMISTRY METHOD 03/16/2025 10:41 AM [facility] Glucose 111(H) 70 - 100 mg/dL LAB CHEMISTRY METHOD 03/16/2025 10:41 AM [facility] BUN 17 5 - 25 mg/dL LAB CHEMISTRY METHOD 03/16/2025 10:41 AM [facility] Creatinine 0.91 0.70 - 1.30 mg/dL LAB CHEMISTRY METHOD 03/16/2025 10:41 AM [facility] eGFR 92 >=60 mL/min/1. 73m2 LAB CHEMISTRY METHOD 03/16/2025 10:41 AM [facility] Comment:Calculation based on the Chronic Kidney Disease Epidemiology Collaboration (CKD-EPI) equation refit without adjustment for race. BUN/Creatinine Ratio 18.7 LAB CHEMISTRY METHOD 03/16/2025 10:41 AM [facility] Calcium 9.0 8.5 - 10.5 mg/dL LAB CHEMISTRY METHOD 03/16/2025 10:41 AM [facility] AST (SGOT) 17 10 - 42 unit/L LAB CHEMISTRY METHOD 03/16/2025 10:41 AM [facility] ALT (SGPT) 18 10 - 60 unit/L LAB CHEMISTRY METHOD 03/16/2025 10:41 AM [facility] Alkaline Phosphatase 60 42 - 121 unit/L LAB CHEMISTRY METHOD 03/16/2025 10:41 AM [facility] Total Protein 6.3 6.0 - 8.0 g/dL LAB CHEMISTRY METHOD 03/16/2025 10:41 AM [facility] Albumin 3.4 3.2 - 5.0 g/dL LAB CHEMISTRY METHOD 03/16/2025 10:41 AM [facility] Total Bilirubin 0.5 0.0 - 1.4 mg/dL LAB CHEMISTRY METHOD 03/16/2025 10:41 AM [facility] Blood Venous blood specimen / Unknown Venipuncture / Unknown 03/16/2025 7:46 AM EDT 03/16/2025 7:46 AM EDT us Chuck Swanson MD LAB BLOOD ORDERABLES Final Result [facility] [address] [place] [address], * Depression Screening (12/05/2023) Pathologist [facility] Depression Screening abstracted [facility] Provider HEALTH MAINTENANCE Final Result * Colonoscopy (01/10/2023) [facility] Colonoscopy abstracted, no interpretation Anatomical Region Laterality Modality Other [facility] Provider HEALTH MAINTENANCE Final Result * (ABNORMAL) Lipid panel (07/07/2019) [facility] LDL/HDL Ratio 3 0 - 4 Triglycerides 72 0 - 150 mg/dL Cholesterol 214(A) 0 - 200 mg/dL HDL 71 >=40 mg/dL LDL Cholesterol 129(A) 0 - 100 mg/dL Blood Venous blood specimen / Unknown Result [facility] Provider LAB BLOOD ORDERABLES Missy l Result * Hepatitis C Screening (03/09/2013) [facility] Hepatitis C Screening abstracted [facility] Provider HEALTH MAINTENANCE Final Result from Last 3 Months or Most Recently Relevant to Health Maintenance Insurance [employer] MEDICARE Care Teams Lead Sewage Plant Operator Relationship Specialty Start Date End Date Nahid Doshi MD [address] [place] [address] PCP - General 04/30/1999
--- OUTSIDE RECORDS SUMMARY | 2025-03-19 09:20 | XMS_ITS ---
Author Name [facility] Organization Unknown Care Team Organization Name Specialty Phone Email Start Date End Da christoph [facility] Doshi Primary Care 05/08/2022 02/17/2024
--- OUTSIDE RECORDS SUMMARY | 2025-03-19 09:20 | XMS_ITS | Clinical Summary ---
Author Organization [facility] Address [address] [place] [address] Care Team Providers Care Senior Human Resources Representative Name Role Phone Nahid Doshi MD Primary Care Provider [phone] Allergies No known active allergies Medications Medication [...] age to complete this topic Care Teams Senior Human Resources Representative Relationship Specialty Start Date End Date Nahid Doshi MD PCP - General Internal Medicine 07/13/22
--- OUTSIDE RECORDS SUMMARY | 2025-03-19 09:20 | XMS_ITS | Encounter Summary ---
Author Organization [facility] Address [address] [place] [address] Care Team Providers Care Ticket Worker Name Role Phone Nahid Doshi MD Primary Care Provider [phone] Encounter Details Date Type Department Care Team (Late st Contact Info) Description 03/16/2025 Telephone [facility] Hematology Oncology [address] [place] [address] Chuck Swanson MD [address] [place] [address] Social History Tobacco Use Types Packs/Day Years [...] ed Within the last 3 months, ho heather many times did you visit the emergency [...] care for your loved ones. For example, exceptional children teacher or elderly care for an older adult? [...] on file documented as of this encounter Progress Notes * Michelle Smith - 03/16/2025 1:52 PM EDT Jenise with [facility] blood bank is calling to request a new phlebotomy order to be sent to them as they do not have a date on the order * Oly Pinto [place] - 03/16/2025 12:58 PM EDT Faxed new orders to [facility],[phone] * April Dawn - 03/16/2025 11:56 AM EDT Pt calling he need pheblotomy every month order says every 2 months can we send new order he has appt this Saturday at 8 am documented in this encounter Plan of Treatment Upcoming Encounters Date Type Department Care Team (Late st Contact Info) Description 03/19/2025 3:45 PM EDT Office Visit [facility] Hematology Oncology [address] [place] [address] Chuck Swanson MD [address] [place] [address] documented as of this encounter Visit Diagnoses Not on filedocumented in this encounter Additional Health Concerns Assessment Noted Time PHQ-9 Depression Total Score: 5 10/12/19 25 7:06 PM EDT documented as of this encounter Care Teams Ticket Worker Relationship Specialty Start Date End Date Nahid Doshi MD [address] [place] [address] PCP - General 04/30/1999 documented as of this encounter
--- OUTSIDE RECORDS SUMMARY | 2025-03-19 09:20 | XMS_ITS | Encounter Summary ---
Author Organization [facility] Address [address] [facility] [address] [place] [address] Phone Care Team Providers Care Players Assistant Name Role Phone Nahid Doshi MD Primary Care Provider [phone] Encounter Details Date Type Department Care Team (Latest Contact Info) Description 12/09/2017 Transcribe Orders [facility] Laboratory [address] [address] Lei Hart MD [address] [place] [address], [address] [address] [email or web address] Benign localized hyperplasia of prostate with urinary [...] EDT) PSA 5.10(H) 0 - 4.00 ng/mL [facility] Blood 12/09/2017 8:57 AM EDT 12/09/2017 9:00 AM EDT us Lei Hart MD LAB BLOOD ORDERABLES Final Resu lt [facility] [address] [place] [address] documented in this encounter Visit Diagnoses Diagnosis Benign localized hyperplasia of prostate with urinary retention- Primary Benign localized hyperplasia of prostate with urinary obstruction and other lower urinary tract symptoms (LUTS) documented in this encounter Care Teams Players Assistant Relationship Specialty Start Date End Date Nahid Doshi MD [address] [place] [address] PCP - General Internal Medicine 12/09/17 documented as of this encounter Additional Source Comments The information contained in this document represents components of the legal health record. It is not the complete legal health record.[facility]
--- OUTSIDE RECORDS SUMMARY | 2025-03-19 09:20 | XMS_ITS | Clinical Summary ---
Author Organization [facility] Address [address] [place] [address] Phone Care Team Providers Care Bioinformatics Assistant Name Role Phone Nahid Doshi MD Primary Care Provider [phone] Allergies No known active allergies Medications ALPRAZolam (XANAX) 1 MG tablet Take 1 mg by mouth nightly at bedtime as needed for sleep. Active glucosamine-chond roitin 500-400 mg Cap Take 1 capsule by mouth daily. Active omega 4-xib-znb-fish oil 1,000 mg (120 mg-180 mg) Cap Take 1 capsule by mouth daily. Active therapeutic multivitamin tablet Take 1 tablet by mouth daily. Active b complex vitamins capsule Take 1 capsule by mouth daily. Active tamsulosin (FLOMAX) 0.4 mg Cap Take 1 capsule (0.4 mg total) by mouth daily. 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 Not on ashok e 10/26/2022 Are you concerned about learning? Not on file 10/26/2022 No 10/26/2022 No 10/26/2022 Digital Access Answer Date Recorded No 11/24/2022 No 11/24/2022 No 11/24/2022 Reliable internet access at home? Not on file 11/24/2022 Device with a working camera? Not on file Sex and Gender Information Value Date Recorded Sex Assigned at Not on file Legal Sex Male 9:53 PM EDT Gender Identity Not on file Sexual Orientation Not on file Last Filed Vital Signs Vital Sign Reading Time Taken Comments Blood Pressure 113/73 07/07/2019 8:13 AM EST Pulse 88 07/07/2019 8:13 AM EST Temperature 36.6 C (97.8 F) 11/30/2019 7:57 AM EDT Respiratory Rate - - Oxygen Saturation 97% 07/07/2019 8:13 AM EST Inhaled Oxygen Concentration - - Weight 85.3 kg (188 lb) 07/07/2019 8:13 AM EST Height - - Body Mass Index - - Plan of Treatment Health Maintenance Due Date Last Done Comments LIPID PANEL 1957 DEPRESSION SCREENING 1969 HEPATITIS C SCREENING 1975 PNEUMOCOCCAL VACCINES (50+ years) (1 of 2 - PCV) 1976 ZOSTER VACCINES (1 of 2) 1976 SMOKING STATUS SCREENING (On ce After 26 Yrs) 1983 COLOGUARD 2002 COLONOSCOPY 2002 COLORECTAL CANCER SCREENING 2002 FIT TEST 2002 FOBT 2002 SIGMOIDOSCOPY 2002 VIRTUAL COLONOSCOPY 2002 Adult Td,Tdap Booster 04/04/2019 04/04/2009 INFLUENZA VACCINE (#1) 2025 COVID-19 VACCINE (3 - 2024-2 6 season) 2025 10/26/2020, 10/05/2020 RSV VACCINE (1 - 1-dose 75+ series) 2032 HEPATITIS A VACCINES Aged Out No long er eligible based on patient's age to complete this topic HIB VACCINES Aged Out No longer eligi ble based on patient's age to complete this topic MENINGOCOCCAL VACCINES (ACWY) Aged Out No longer eligible based on patient's age to complete this topic MENINGOCOCCAL VACCINES (B) Aged Out N o longer eligible based on patient's age to complete this topic Medical Devices Not on file Insurance [facility] [employer] ACO [facility] [employer] ACO [employer] A[employer]CO [facility] Care Teams Bioinformatics Assistant Relationship Specialty Start Date End Date Nahid Doshi MD [address] [place] [address] PCP - General Internal Medicine 12/09/17 Additional Source Comments The information contained in this document represents components of the legal health record. It is not the complete legal health record.[facility]
--- OUTSIDE RECORDS SUMMARY | 2025-03-19 09:20 | XMS_ITS | Encounter Summary ---
Author Organization [facility] Address [address] [place] [address] Phone Care Team Providers Care Vegetable Farmworker Name Role Phone Nahid Doshi MD Primary Care Provider [phone] Encounter Details Date Type Department Care Team (Late st Contact Info) Description 05/09/2021 Telephone [facility] Rad Onc [address] [place] [address] Amalia Sultaan RN [address] [place] [address] [email or web address] Social History Tobacco Use Types Packs/Day Years Used Date Smoking Tobacco: Never Smokeless Tobacco: Never Alcohol Use Standard Drinks/Week Comments Yes 4 (1 standard drink = 0.6 oz pur e alcohol) weekly Sex and Gender Information Value Date Recorded Sex Assigned at Not on file Legal Sex Male 9:53 PM EDT Gender Identity Not on file Sexual Orientation Not on file documented as of this encounter Plan of Treatment Not on file documented as of this encounter Visit Diagnoses Not on filedocumented in this encounter Care Teams Vegetable Farmworker Relationship Specialty Start Date End Date Nahid Doshi MD [address] [place] [address] PCP - General Internal Medicine 12/09/17 documented as of this encounter Additional Source Comments The information contained in this document represents components of the legal health record. It is not the complete legal health record.[facility]
== END 2025-03-19 08:45 | disposition home or self-care (01) ==
LOC: HO.BBR 08:44
PROVIDERS: PCP Internal Medicine; Visit Provider Internal Medicine Hematology & Oncology
DX: Z13.89 Encounter for screening for other disorder (principal)

== ENCOUNTER 2025-04-15 07:57 | Outpatient (REF) | payer MEDICARE, SELFPAY ==
--- OUTSIDE RECORDS SUMMARY | 2025-04-15 08:03 | XMS_ITS | Clinical Summary ---
Author Organization [facility] [address] [place] [address] Address [address] [place] [address] Phone Care Team Providers Care Hand I Cutter Name Role Phone Nahid Doshi MD Primary Care Provider [phone] Allergies No known active allergies Medications cholecalciferol, [...] Daily Amount: 1 mg 28 tablet 5 03/31/20 25 Discontinu ed(Reorder ) Active Problems Problem Noted Date Diagnosed Date Neutropenia ([facility] V24) 09/25/2022 Osteochondral lesion 08/23/2022 COVID-19 07/06/2021 Anxiety 07/07/2019 Prostate CA ([facility] V24, [facility] V28) 0 Depression 06/19/2018 Osteoarthritis of cervical spine 09/02/2017 Joint pain 12/21/2016 Actinic keratosis 05/15/2012 Overview (05/07/2024): Actinic keratosis 05/12 right cheek Hereditary hemochromatosis (CMS/HCC V24) 012 Agoraphobia with panic disorder 06/29/2009 Leukopenia 06/03/2007 Encounters Date Type Department Care Team Description 03/19/2025 3:45 PM EDT Office Visit [facility] Hematology Oncology [address] [place] [phone] Chuck Swanson MD Hereditary hemochromatosis ([facility]/HCC V24) (Primary Dx); Prostate CA (CMS/HCC V24, CMS/HCC V28) 03/16/2025 Telephone [facility] Hematology Oncology [address] [place] [phone] Chuck Swanson MD 03/12/2025 8:30 AM EDT Office Visit [facility] Medicine [address] [phone] Nahid Doshi MD Anxiety (Primary Dx); Hereditary hemochromatosis (CMS/HCC V24); Prostate CA (CMS/HCC V24, CMS/HCC V28); Macrocytosis 02/12/2025 Telephone [facility] Hematology Oncology [address] [place] [phone] Chuck Swanson MD from Last 3 Months Immunizations Immunization Administration Dates Next Due Tdap Tetanus diptheria acell ular pertussis (Boostrix; Adacel) 7yo and older 12/05/2023,04/04/2009 Zoster recombinant (Shingrix) 19yo and older 05/2024,02/10/2024 Surgical History Surgery Date Site/Laterality Comments COLONOSCOPY 07/01/1999 PROCEDURE: PA COLONOSCOPY FLX DX W/COLLJ SPEC WHEN PFRMD; COMMENT: negative COLONOSCOPY 07/01/2012 PROCEDURE: PA COLONOSCOPY FLX DX W/COLLJ SPEC WHEN PFRMD; [...] care for your loved ones. For example, assistant child care teacher or elderly care for an older [...] Date Recorded What is your living situation? Unrecognized valu e 10/11/2024 Sex and Gender Information Value Date Recorded Sex Assigned at Not on file Legal Sex Male 5:10 PM EST Gender Identity Not on file Sexual Orientation Not on file Obstetrics History Last Filed Vital Signs Vital Sign Reading Time Taken Comments Blood Pressure 109/60 03/19/2025 3:35 PM EDT Pulse 71 03/19/2025 3:35 PM EDT Temperature 36.1 C (97 F) 03/19/2025 3:35 PM EDT Respiratory Rate 16 03/12/2025 8:12 AM EDT Oxygen Saturation 97% 03/19/2025 3:35 PM EDT Inhaled Oxygen Concentration - - Weight 84.4 kg (186 lb) 03/19/2025 3:35 PM EDT Height 180.3 cm (5' 11 ) 03/12/2025 8:12 AM EDT Body Mass Index 25.94 03/12/2025 8:12 AM EDT Plan of Treatment Upcoming Encounters Date Type Department Care Team (Late st Contact Info) Description 06/28/2025 9:30 AM EST Office Visit [facility] Hematology Oncology [address] [place] [phone] Chuck Swanson MD [address] [place] [phone] Health Maintenance Due Date Last Done Comments [...] K/mcL LAB HEMETOLOGY METHOD 03/16/2025 10:14 AM [facility] LAB RBC 4.30(L) 4.50 - 5.50 M/mcL LAB HEMETOLOGY METHOD 03/16/2025 10:14 AM [facility] LAB Hemoglobin 14.6 13.5 - 17.5 g/dL LAB HEMETOLOGY METHOD 03/16/2025 10:14 AM [facility] LAB Hematocrit 43.1 42.0 - 54.0 % LAB [facility]OLOG[facility] MCV 99.3(H) 79.0 - 98.0 FL LAB HEMETOLOGY METHOD 03/16/2025 10:14 AM [facility] LAB MCH 33.6(H) 27.0 - 32.0 pcg LAB HEMETOLOGY METHOD 03/16/2025 10:14 AM [facility] LAB MCHC 33.9 32.0 - 37.0 g/dL LAB HEMETOLOGY METHOD 03/16/2025 10:14 AM [facility] RDW 13.2 11.0 - 15.0 % LAB HEMETOLOGY METHOD 03/16/2025 10:14 AM [facility] LAB Platelets 212 130 - 400 K/mcL LAB HEMETOLOGY METHOD 03/16/2025 10:14 AM [facility] LAB MPV 9.9 7.0 - 11.0 FL LAB HEMETOLOGY METHOD 03/16/2025 10:14 AM [facility] NRBC 0.0 <1.0 % LAB HEMETOLOGY METHOD 03/16/2025 10:14 AM [facility] LAB NRBC Absolute 0.00 <0.10 K/mcL LAB HEMETOLOGY METHOD 03/16/2025 10:14 AM [facility] LAB Neutrophils Relative 41.2 % LAB HEMETOLOGY METHOD 03/16/2025 10:14 AM [facility] Lymphocytes Relative 36.9 % LAB HEMETOLOGY METHOD 03/16/2025 10:14 AM [facility] Monocytes Relative 11.2 % LAB HEMETOLOGY METHOD 03/16/2025 10:14 AM [facility] Eosinophils Relative 9.4 % LAB HEMETOLOGY METHOD 03/16/2025 10:14 AM [facility] Basophils Relative 1.3 % LAB HEMETOLOGY METHOD 03/16/2025 10:14 AM [facility] Immature Granulocytes Relative 0.0 % LAB HEMETOLOGY METHOD 03/16/2025 10:14 AM [facility] Neutrophils Absolute 1.62 1.50 - 7.00 K/mcL LAB HEMETOLOGY METHOD 03/16/2025 10:14 AM [facility] Lymphocytes Absolute 1.45 1.00 - 5.00 K/mcL LAB HEMETOLOGY METHOD 03/16/2025 10:14 AM EDT [facility] Monocytes Absolute 0.44 0.20 - 1.00 K/[facility] LAB HEMETOLOGY METHOD 03/16/2025 10:14 AM EDT [facility] Eosinophils Absolute 0.37 0.00 - 0.50 K/mcL LAB HEMETOLOGY METHOD 03/16/2025 10:14 AM EDT [facility] Basophils Absolute 0.05 0.00 - 0.20 K/[facility] LAB HEMETOLOGY METHOD 03/16/2025 10:14 AM EDT [facility] Immature Granulocytes Absolute 0.00 0.00 - 0.03 K/[facility] LAB HEMETOLOGY METHOD 03/16/2025 10:14 AM EDT [facility] Blood Venous blood specimen / Unknown Venipuncture / Unknown 03/16/2025 7:46 AM EDT 03/16/2025 7:46 AM EDT us Chuck Swanson MD LAB BLOOD ORDERABLES Final Result [facility] [address] [place] [address], * (ABNORMAL) Iron and TIBC (03/16/2025 7:46 AM EDT) Iron 224(H) 50 - 160 mcg/dL LAB CHEMISTRY METHOD 03/16/2025 10:40 AM EDT [facility] TIBC 236(L) 250 - 450 mcg/dL LAB CHEMISTRY METHOD 03/16/2025 10:40 AM EDT [facility] Iron Saturation 95(H) 20 - 50 % LAB CHEMISTRY METHOD 03/16/2025 10:40 AM EDT [facility] Blood Venous blood specimen / Unknown Venipuncture / Unknown 03/16/2025 7:46 AM EDT 03/16/2025 7:46 AM EDT Chuck Swanson MD LAB BLOOD ORDERABLES Final Result Performing Organization Address [facility]/ZIP Co de Phone Number [facility] [address] [place] [address], [place] [phone] * Ferritin (03/16/2025 7:46 AM EDT) Pathologist [facility] Ferritin 65 26 - 388 ng/mL LAB CHEMISTRY METHOD 03/16/2025 10:40 AM EDT [facility] Blood Venous blood specimen / Unknown Venipuncture / Unknown 03/16/2025 7:46 AM EDT 03/16/2025 7:46 AM EDT Chukc Swanson MD LAB BLOOD ORDERABLES Final Result Performing Organization Address [facility] de Phone Number [facility] [address] [place] [address], [place] [phone] * (ABNORMAL) Comprehensive metabolic panel (03/16/2025 7:46 AM EDT) [facility] Sodium 141 133 - 145 mmol/L LAB CHEMISTRY METHOD 03/16/2025 10:41 AM [facility] Potassium 4.1 3.5 - 5.5 mmol/L LAB CHEMISTRY METHOD 03/16/2025 10:41 AM [facility] Chloride 107 96 - 110 mmol/L LAB CHEMISTRY METHOD 03/16/2025 10:41 AM [facility] CO2 29 21 - 32 mmol/L LAB CHEMISTRY METHOD 03/16/2025 10:41 AM [facility] Anion Gap 5 3 - 11 LAB CHEMISTRY METHOD 03/16/2025 10:41 AM [facility] Glucose 111(H) 70 - 100 mg/dL LAB CHEMISTRY METHOD 03/16/2025 10:41 AM [facility] BUN 17 5 - 25 mg/dL LAB CHEMISTRY METHOD 03/16/2025 10:41 AM [facility] Creatinine 0.91 0.70 - 1.30 mg/dL LAB CHEMISTRY METHOD 03/16/2025 10:41 AM [facility] LAB eGFR 92 >=60 mL/min/1. 73m2 LAB CHEMISTRY METHOD 03/16/2025 10:41 AM [facility] Comment:Calculation based on the Chronic Kidney Disease Epidemiology Collaboration (CKD-EPI) equation refit without adjustment for race. BUN/Creatinine Ratio 18.7 LAB CHEMISTRY METHOD 03/16/2025 10:41 AM [facility] Calcium 9.0 8.5 - 10.5 mg/dL LAB CHEMISTRY METHOD 03/16/2025 10:41 AM [facility] AST (SGOT) 17 10 - 42 unit/L LAB CHEMISTRY METHOD 03/16/2025 10:41 AM [facility] ALT (SGPT) 18 10 - 60 unit/L LAB CHEMISTRY METHOD 03/16/2025 10:41 AM [facility] Alkaline Phosphatase 60 42 - 121 unit/L LAB CHEMISTRY METHOD 03/16/2025 10:41 AM [facility] Total Protein 6.3 6.0 - 8.0 g/dL LAB CHEMISTRY METHOD 03/16/2025 10:41 AM [facility] Albumin 3.4 3.2 - 5.0 g/dL LAB CHEMISTRY METHOD 03/16/2025 10:41 AM [facility] Total Bilirubin 0.5 0.0 - 1.4 mg/dL LAB CHEMISTRY METHOD 03/16/2025 10:41 AM [facility] Blood Venous blood specimen / Unknown Venipuncture / Unknown 03/16/2025 7:46 AM EDT 03/16/2025 7:46 AM EDT Chuck Swanson MD LAB BLOOD ORDERABLES Final Result [facility] ([facility] [address] [place] [address], * Depression Screening (12/05/2023) [facility] Depression Screening abstracted Historical Provider HEALTH MAINTENANCE Final Result * Colonoscopy (01/10/2023) [facility] Colonoscopy abstracted, no interpretation Anatomical Region Laterality Modality Other Nathalia De La Torre MD HEALTH MAINTENANCE Final Result * (ABNORMAL) Lipid panel (07/07/2019) [facility] LDL/HDL Ratio 3 0 - 4 Triglycerides 72 0 - 150 mg/dL Cholesterol 214(A) 0 - 200 mg/dL HDL 71 >=40 mg/dL LDL Cholesterol 129(A) 0 - 100 mg/dL Blood Venous blood specimen / Unknown Result [facility] Historical iWl [facility] LAB BLOOD ORDERABLES Missy l Result * Hepatitis C Screening (03/09/2013) [facility] Hepatitis C Screening abstracted Historical Wil [facility] HEALTH MAINTENANCE Final Result from Last 3 Months or Most Recently Relevant to Health Maintenance Insurance [facility] MEDICARE Care Teams Hand I Cutter Relationship Specialty Start Date End Date Nahid Doshi MD [address] [place] [address] PCP - General 04/30/1999
--- OUTSIDE RECORDS SUMMARY | 2025-04-15 08:04 | XMS_ITS | Clinical Summary ---
Author Organization [facility] Address [address] [place] [address] Care Team Providers Care Doubler Helper Name Role Phone Nahid Doshi MD Primary Care Provider [phone] Allergies No known active allergies Medications Medication [...] age to complete this topic Care Teams Doubler Helper Relationship Specialty Start Date End Date Nahid Doshi MD PCP - General Internal Medicine 07/13/22
--- OUTSIDE RECORDS SUMMARY | 2025-04-15 08:04 | XMS_ITS | Encounter Summary ---
Author Organization [facility] Address [address] [place] [address] Phone Care Team Providers Care Hemodialysis Patient Care Specialist Name Role Phone Nahid Doshi MD Primary Care Provider [phone] Encounter Details Date Type Department Care Team (Late st Contact Info) Description 05/09/2021 Telephone [facility] Rad Onc [address] [place] [address] Amalia Sultana RN [address] [place] [address] [email or web address] Social History Tobacco Use Types Packs/Day Years [...] on filedocumented in this encounter Care Teams Hemodialysis Patient Care Specialist Relationship Specialty Start Date End Date Nahid Doshi MD [address] [place] [phone] PCP - General Internal Medicine 12/09/17 documented as of this encounter Additional Source Comments The information contained in this document represents components of the legal health record. It is not the complete legal health record.[facility]
--- OUTSIDE RECORDS SUMMARY | 2025-04-15 08:04 | XMS_ITS | Encounter Summary ---
Author Organization [facility] Address [address] [facility] [address] [place] [address] Phone Care Team Providers Care Media Operator Name Role Phone Nahid Doshi MD Primary Care Provider Encounter Details Date Type Department Care Team (Latest Contact Info) Description 12/09/2017 Transcribe Orders [facility] Laboratory [address] [address] Lei Hart MD [address] [place] [address], [address] [address] [email or web address] Benign localized hyperplasia of prostate with urinary [...] EDT) PSA 5.10(H) 0 - 4.00 ng/mL [facility] Blood 12/09/2017 8:57 AM EDT 12/09/2017 9:00 AM EDT us Lei Hart MD LAB BLOOD ORDERABLES Final Resu lt [facility] [address] [place] [address] documented in this encounter Visit Diagnoses Diagnosis Benign localized hyperplasia of prostate with urinary retention- Primary Benign localized hyperplasia of prostate with urinary obstruction and other lower urinary tract symptoms (LUTS) documented in this encounter Care Teams Media Operator Relationship Specialty Start Date End Date Nahid Doshi MD [address] [place] [address] PCP - General Internal Medicine 12/09/17 documented as of this encounter Additional Source Comments The information contained in this document represents components of the legal health record. It is not the complete legal health record.[facility]
--- OUTSIDE RECORDS SUMMARY | 2025-04-15 08:04 | XMS_ITS | Clinical Summary ---
Author Organization [facility] Address [address] [place] [address] Phone Care Team Providers Care Manager Psychiatry Name Role Phone Nahid Doshi MD Primary Care Provider [phone] Allergies No known active allergies Medications ALPRAZolam (XANAX) 1 MG tablet Take 1 mg by mouth nightly at bedtime as needed for sleep. Active glucosamine-chond roitin 500-400 mg Cap Take 1 capsule by mouth daily. Active omega 0-uzg-rou-fish oil 1,000 mg (120 mg-180 mg) Cap [...] topic Medical Devices Not on file Insurance [facility] [employer] [facility] ALLANCE ACO [employer] [facility] ALL[employer] ACO [employer] [facility] ALLANCE ACO [facility] Care Teams Manager Psychiatry Relationship Specialty Start Date End Date Nahid Doshi MD [address] [place] [address] PCP - General Internal Medicine 12/09/17 Additional Source Comments The information contained in this document represents components of the legal health record. It is not the complete legal health record.[facility]
== END 2025-04-15 07:58 | disposition home or self-care (01) ==
LOC: HO.BBR 07:57
PROVIDERS: PCP Internal Medicine; Visit Provider Internal Medicine Hematology & Oncology
DX: Z13.89 Encounter for screening for other disorder (principal)

== ENCOUNTER 2025-05-13 08:00 | Outpatient (REF) | payer MEDICARE, SELFPAY ==
--- OUTSIDE RECORDS SUMMARY | 2025-05-13 08:06 | XMS_ITS | Clinical Summary ---
Author Organization [facility] Address [address] [place] [address] Care Team Providers Care Pocket Grinder Operator Name Role Phone Nahid Doshi MD Primary Care Provider [phone] Allergies No known active allergies Medications Medication [...] age to complete this topic Care Teams Pocket Grinder Operator Relationship Specialty Start Date End Date Nahid Doshi MD PCP - General Internal Medicine 07/13/22
--- OUTSIDE RECORDS SUMMARY | 2025-05-13 08:06 | XMS_ITS | Encounter Summary ---
Author Organization [facility] Address [address] [facility] [address] [place] [address] Phone Care Team Providers Care Conveyor Man Name Role Phone Nahid Doshi MD Primary Care Provider [phone] Encounter Details Date Type Department Care Team (Latest Contact Info) Description 12/09/2017 Transcribe Orders [facility] Amber [address] [facility] [address] [place] [address] Lei Hart MD [address] [place] [address], [address] [place] [address] [email or web address] Benign localized hyperplasia of prostate with urinary [...] EDT) PSA 5.10(H) 0 - 4.00 ng/mL [facility] Blood 12/09/2017 8:57 AM EDT 12/09/2017 9:00 AM EDT us Lei Hart MD LAB BLOOD BKR ORDERABLES Final Result [facility] [address] [place] [address] documented in this encounter Visit Diagnoses Diagnosis Benign localized hyperplasia of prostate with urinary retention- Primary Benign localized hyperplasia of prostate with urinary obstruction and other lower urinary tract symptoms (LUTS) documented in this encounter Care Teams Conveyor Man Relationship Specialty Start Date End Date Nahid Doshi MD [address] [place] [id number] PCP - General Internal Medicine 12/09/17 documented as of this encounter Additional Source Comments The information contained in this document represents components of the legal health record. It is not the complete legal health record.[facility]
--- OUTSIDE RECORDS SUMMARY | 2025-05-13 08:06 | XMS_ITS | Clinical Summary ---
Author Organization [facility] Address [address] [place] [address] Phone Care Team Providers Care Ged Teacher Name Role Phone Nahid Doshi MD Primary Care Provider [phone] Allergies No known active allergies Medications ALPRAZolam (XANAX) 1 MG tablet Take 1 mg by mouth nightly at bedtime as needed for sleep. Active glucosamine-chond roitin 500-400 mg Cap Take 1 capsule by mouth daily. Active omega 6-dcn-swz-fish oil 1,000 mg (120 mg-180 mg) Cap [...] patient's age to complete this topic IPV VACCINES Aged Out No longer eligi ble based on patient's age to complete this topic MENINGOCOCCAL VACCINES (ACWY) Aged Out No longer eligible based on patient's age to complete this topic MENINGOCOCCAL VACCINES (B) Aged Out N o longer eligible based on patient's age to complete this topic Medical Devices Not on file Insurance [facility] [employer] [facility] [employer] [facility] [employer]ies [employer] ALLANCE [facility] ACO [employer] ALLANCE ACO [employer] ALLANCE ACO [facility] Care Teams Ged Teacher Relationship Specialty Start Date End Date Nahid Doshi MD [address] [place] [address] PCP - General Internal Medicine 12/09/17 Additional Source Comments The information contained in this document represents components of the legal health record. It is not the complete legal health record.[facility]
--- OUTSIDE RECORDS SUMMARY | 2025-05-13 08:06 | XMS_ITS | Encounter Summary ---
Author Organization [facility] Address [address] [place] [address] Phone Care Team Providers Care Frame Straightener Name Role Phone Nahid Doshi MD Primary Care Provider [phone] Encounter Details Date Type Department Care Team (Late st Contact Info) Description 05/09/2021 Telephone [facility] Rad Onc [address] [place] [address] Amalia Sultana RN [address] [place] [address] [email or web address] Social History Tobacco Use [...] on filedocumented in this encounter Care Teams Frame Straightener Relationship Specialty Start Date End Date Nahid Doshi MD [address] [place] [address] PCP - General Internal Medicine 12/09/17 documented as of this encounter Additional Source Comments The information contained in this document represents components of the legal health record. It is not the complete legal health record.[facility]
== END 2025-05-13 08:01 | disposition home or self-care (01) ==
LOC: HO.BBR 08:00
PROVIDERS: PCP Internal Medicine; Visit Provider Internal Medicine Hematology & Oncology
DX: Z13.89 Encounter for screening for other disorder (principal)